=== PATIENT | female | born 1950 | race Caucasian/White ===

== ENCOUNTER 2017-04-14 13:14 | Emergency (ER) | payer OTHER ==
[2017-04-14 13:20] VITALS: BP 129/84
[2017-04-14 14:00] LABS: ABS Basophils 0.1 10^3/ul (0-0.2); ABS Eosinophils 0.1 10^3/ul (0-0.6); ABS Lymphocytes 1.6 10^3/ul (1.0-4.8); ABS Monocytes 0.3 10^3/ul (0-0.8); ABS Neutrophils 2.7 10^3/ul (1.5-7.7); ABS Nucleated RBC 0 10^3/ul; Eosinophil % 2.3 % (0-6); Hematocrit 42 % (35-47); Hemoglobin 14.2 g/dl (12.0-16.0); Lymphocyte % 33.9 % (25-47); Mean Corpuscular HGB Conc 34 g/dl (31-36); Mean Corpuscular Hemoglobin 31 pg (27-31); Mean Corpuscular Volume 91 fL (80-97); Mean Platelet Volume 8 um3 (7.4-10.4); Nucleated Red Blood Cells % 0; Platelet Count 234 10^3/ul (150-450); Red Blood Count 4.61 10^6/ul (4.0-5.4); Red Cell Distribution Width 14 % (10.5-15); White Blood Count 4.8 10^3/ul (3.5-10.8)
[2017-04-14 14:13] LABS: INR 0.92 (0.77-1.02)
[2017-04-14 14:14] LABS: EGFR Non-African American 69.3 (>60)
--- NOTE | 2017-04-14 14:20 | RAD ---
HISTORY: Chest pain COMPARISONS: November 06, 2013 VIEWS: 4: Frontal dual-energy and lateral views of the chest. FINDINGS: CARDIOMEDIASTINAL SILHOUETTE: The cardiomediastinal silhouette is normal. KOTA: The kota are normal. PLEURA: The costophrenic angles are sharp. No pleural abnormalities are noted. LUNG PARENCHYMA: The lungs are clear. ABDOMEN: The upper abdomen is clear. There is no subphrenic gas. BONES AND SOFT TISSUES: No bone or soft tissue abnormalities are noted. OTHER: None. IMPRESSION: NO ACTIVE CARDIOPULMONARY DISEASE.
== END 2017-04-14 15:41 | disposition left against medical advice (07) ==
LOC: ED 13:14
DX: R07.9 Chest pain, unspecified (principal); Z53.21 Procedure and treatment not carried out due to patient leaving prior to being seen by health care provider
CPT/HCPCS: 36415; 71046; 80053; 82550; 82553; 83605; 83735; 83880; 84443; 84484; 85025; 85610; 85730; 93005

== ENCOUNTER 2017-12-03 03:04 | Emergency (ER) | payer OTHER ==
[2017-12-03 04:37] LABS: Urine Appearance Clear; Urine Blood Negative (Negative); Urine Color Straw; Urine Ketones Negative (Negative); Urine Protein Negative (Negative); Urine Specific Gravity 1.003 (1.010-1.030); Urine Urobilinogen Negative (Negative)
[2017-12-03 04:38] LABS: Urine Red Blood Cell Absent (Absent); Urine White Blood Cell Trace(0-5/hpf) (Absent)
--- NOTE | 2017-12-03 04:59 | ED ---
GI/ HPI - HPI Summary HPI Summary: The pt is a 67 y.o female presenting to the [facility] with a chief complaint of frequent urination. The pt states she has had UTIs in the past but has not had any in recent memory. She denies fevers, hematuria and vomiting. The pt also reports of slight back pain. The onset of the symptoms was 1 week ago. The patient rates the pain 5/10 in severity. Symptoms aggravated by nothing. Symptoms alleviated by nothing. - History of Current Complaint Chief Complaint: EDUrogenitalProblems Time Seen by Provider: 12/03/17 04:12 Stated Complaint: FREQUENT URINATION/DISCOMFPRT Hx Obtained From: Patient Onset/Duration: Started Weeks Ago - 1 week ago Timing: Constant Severity: Moderate Pain Intensity: 5 Location of Pain: Other - slight back pain Associated Signs and Symptoms: Positive: Other: - Frequent urination. Negative hematuria. Negative: Vomiting, Fever Aggravating Factor(s): Nothing Alleviating Factor(s): Nothing - Allergy/Home Medications Allergies/Adverse Reactions: Allergies Allergy/AdvReac Type Severity Reaction Status Date / Time No Known Allergies Allergy Verified 12/03/17 03:11 PMH/Surg Hx/FS Hx/Imm Hx Endocrine/Hematology History: Denies: Hx Anticoagulant Therapy, Hx Diabetes, Hx Thyroid Disease, Hx Anemia Cardiovascular History: Reports: Hx Angina Denies: Hx Coronary Artery Disease, Hx Hypercholesterolemia, Hx Hypertension , Hx Myocardial Infarction, Hx Pacemaker/ICD, Hx Valvular Heart Disease Respiratory History: Denies: Hx Asthma, Hx Chronic Obstructive Pulmonary Disease (COPD) GI History: Denies: Hx Jaundice History: Reports: Hx Kidney Stones Denies: Hx Renal Disease Sensory History: Reports: Hx Contacts or Glasses Opthamlomology History: Reports: Hx Contacts or Glasses Neurological History: Denies: Hx Dementia, Hx Seizures Psychiatric History: Reports: Hx Anxiety Denies: Hx Substance Abuse - Cancer History Hx Chemotherapy: No Hx Radiation Therapy: No - Surgical History Surgery Procedure, Year, and Place: hysterectomy, year unk - Immunization History Date of Tetanus Vaccine: WITHIN 5 YEARS Date of Influenza Vaccine: 2012 Infectious Disease History: No Infectious Disease History: Denies: Hx Hepatitis, Hx Human Immunodeficiency Virus (HIV), Hx Shingles, Hx Tuberculosis, Traveled Outside the [place] in Last 30 Days - Family History Known Family History: Positive: None Family History: Reviewed and noncontributory - Social History Occupation: Retired Alcohol Use: Occasionally Substance Use Type: Reports: None Hx Tobacco Use: Yes Smoking Status (MU): Former Smoker Type: Cigarettes Amount Used/How Often: 1/2 PCK. Have You Smoked in the Last Year: No Review of Systems Negative: Fever Eyes: Negative ENT: Negative Cardiovascular: Negative Respiratory: Negative Negative: Vomiting Positive: frequency. Negative: hematuria Musculoskeletal: Other - slight back pain Skin: Negative Neurological: Negative Psychological: Normal All Other Systems Reviewed And Are Negative: Yes Physical Exam - Summary Physical Exam Summary: VITAL SIGNS: Reviewed. GENERAL: Patient is a well-developed and nourished (FEMALE) who is lying comfortable in the stretcher. Patient is not in any acute respiratory distress. HEAD AND FACE: No signs of trauma. No ecchymosis, hematomas or skull depressions. No sinus tenderness. EYES: PERRLA, EOMI x 2, No injected conjunctiva, no nystagmus. EARS: Hearing grossly intact. Ear canals and tympanic membranes are within normal limits. MOUTH: Oropharynx within normal limits. NECK: Supple, trachea is midline, no adenopathy, no JVD, no carotid bruit, no c- spine tenderness, neck with full ROM. CHEST: Symmetric, no tenderness at palpation LUNGS: Clear to auscultation bilaterally. No wheezing or crackles. CVS: Regular rate and rhythm, S1 and S2 present, no murmurs or gallops appreciated. ABDOMEN: Suprapubic tenderness EXTREMITIES: FROM in all major joints, no edema, no cyanosis or clubbing. NEURO: Alert and oriented x 3. No acute neurological deficits. Speech is normal and follows commands. SKIN: Dry and warm Triage Information Reviewed: Yes Vital Signs On Initial Exam: Initial Vitals Temp Pulse Resp BP Pulse Ox 97.6 F 96 16 157/97 98 12/03/17 03:08 12/03/17 03:08 12/03/17 03:08 12/03/17 03:08 12/03/17 03:08 Vital Signs Reviewed: Yes Diagnostics - Vital Signs Vital Signs Temp Pulse Resp BP Pulse Ox 12/03/17 03:08 97.6 F 96 16 157/97 98 - Laboratory Lab Results: Lab Results 12/03/17 Range/Units 04:27 Urine Color Straw Urine Appearance Clear Urine pH 6.0 (5-9) Ur Specific Protivin 1.003 L (1.010-1.030) Urine Protein Negative (Negative) Urine Ketones Negative (Negative) Urine Blood Negative (Negative) Urine Nitrate Negative (Negative) Urine Bilirubin Negative (Negative) Urine Urobilinogen Negative (Negative) Ur Leukocyte Esterase 1+ A (Negative) Urine WBC (Auto) Trace(0-5/hpf) (Absent) Urine RBC (Auto) Absent (Absent) Urine Bacteria Absent (Absent) Urine Glucose Negative (Negative) Urine Ascorbic Acid * A (Negative) Lab Statement: Any lab studies that have been ordered have been reviewed, and results considered in the medical decision making process. GIGU Course/Dx - Course Course Of Treatment: The pt is a 67 y/o female with a chief complaint of frequent urination. pt also reports of a slight back pain. since 1 week ago. The pt upon review of lab results and urinalysis will be dx with UTI. The pt is recommended to follow up with Private MD within 1 to 2 days. She will be discharged home. - Diagnoses Provider Diagnoses: UTI (urinary tract infection) Discharge - Sign-Out/Discharge Documenting (check all that apply): Patient Departure - Discharge home, Post- Discharge Follow Up - Follow up with private MD within 1 to 2 days - Discharge Plan Condition: Stable Disposition: HOME Prescriptions: Levofloxacin TAB* [Levaquin TAB*] 500 mg PO DAILY #3 tab Phenazopyridine TAB* [Pyridium 100 mg TAB*] 100 mg PO TID PRN #7 tab PRN Reason: Pain Patient Education Materials: Urinary Tract Infection in Women (ED) Referrals: Olvin Stoll MD [Primary Care Provider] - Additional Instructions: RETURN TO THE EMERGENCY DEPARTMENT FOR CHANGING OR WORSENING SYMPTOMS. FOLLOW UP WITH PCP IN 1-2 DAYS. - Attestation Statements Document Initiated by Scribe: Yes Documenting Scribe: Freddie Couch Provider For Whom Scribe is Documenting (Include Credential): Dr. Guevara Adan Scribe Attestation: Freddie Wilkes scribed for Dr. Guevara Adan on 12/03/17 at 0523.
[2017-12-03] MEDS ORDERED: Phenazopyridine TAB* 100 MG PO ONE (05:14)
[2017-12-03] MEDS ORDERED: Levofloxacin TAB* 500 MG PO ONE (05:14)
[2017-12-03 05:37] VITALS: BP 132/92
== END 2017-12-03 05:37 | disposition home or self-care (01) ==
LOC: ED 03:04
DX: N39.0 Urinary tract infection, site not specified (principal); Z87.440 Personal history of urinary (tract) infections
CPT/HCPCS: 81003; 81015; 87086; 99282; A9270-GY

== ENCOUNTER → 2018-08-31 16:03 | Emergency (ER) | payer OTHER ==
--- NOTE | 2018-08-31 16:34 | ED ---
HPI Chest Pain - HPI Summary HPI Summary: This pt is a 67 y/o female presenting to [facility] c/o intermittent chest pain since last week. Pt describes chest pain as intermittent pressure that is located under her left breast. She notes that it sometimes radiates to her left side. Pt states she has associated nausea. Denies vomiting, SOB, numbness, tingling. She reports 2 days ago she had a bit of chest pain but resolved on its own. Yesterday she states also having chest pain but it resolved "immediately" after taking Zantac. Pt exercised yesterday and reports she had no chest pain after. Today she also notes she had some chest pain. - History of Current Complaint Chief Complaint: EDChestPainROMI Time Seen by Provider: 08/31/18 16:18 Hx Obtained From: Patient Onset/Duration: Started Weeks Ago - 1, Still Present Timing: Intermittent, Lasting Weeks - 1 Initial Severity: Mild Current Severity: None Pain Intensity: 0 Pain Scale Used: 0-10 Numeric Chest Pain Location: Left Anterior Chest Pain Radiates: No Character: Pressure/Squeezing - Pressure Aggravating Factor(s): Nothing Alleviating Factor(s): Nothing Associated Signs and Symptoms: Positive: Chest Pain, Nausea. Negative: Numbness , Tingling, Shortness of Breath, Fever, Chills, Vomiting - Allergy/Home Medications Allergies/Adverse Reactions: Allergies Allergy/AdvReac Type Severity Reaction Status Date / Time No Known Allergies Allergy Verified 12/03/17 03:11 Home Medications: Home Medications Estradiol VAG CM (NF) [Estrace VAG CM (NF)] 1 applic VAGINAL .TWICE A WEEK 08/31 [History Confirmed 08/31/18] Ranitidine TAB (NF) [Zantac TAB (NF)] 300 mg PO DAILY 08/31/18 [History Confirmed 08/31/18] PMH/Surg Hx/FS Hx/Imm Hx Endocrine/Hematology History: Denies: Hx Anticoagulant Therapy, Hx Diabetes, Hx Thyroid Disease, Hx Anemia Cardiovascular History: Reports: Hx Angina Denies: Hx Coronary Artery Disease, Hx Hypercholesterolemia, Hx Hypertension , Hx Myocardial Infarction, Hx Pacemaker/ICD, Hx Valvular Heart Disease Respiratory History: Denies: Hx Asthma, Hx Chronic Obstructive Pulmonary Disease (COPD) GI History: Denies: Hx Jaundice History: Reports: Hx Kidney Stones Denies: Hx Renal Disease Sensory History: Reports: Hx Contacts or Glasses Opthamlomology History: Reports: Hx Contacts or Glasses Neurological History: Denies: Hx Dementia, Hx Seizures Psychiatric History: Reports: Hx Anxiety Denies: Hx Substance Abuse - Cancer History Hx Chemotherapy: No Hx Radiation Therapy: No - Surgical History Surgery Procedure, Year, and Place: hysterectomy, year unk - Immunization History Date of Tetanus Vaccine: WITHIN 5 YEARS Date of Influenza Vaccine: 2012 Infectious Disease History: No Infectious Disease History: Denies: Hx Hepatitis, Hx Human Immunodeficiency Virus (HIV), Hx Shingles, Hx Tuberculosis, Traveled Outside the [place] in Last 30 Days - Family History Known Family History: Positive: Unknown - pt is adopted - Social History Alcohol Use: Occasionally Substance Use Type: Reports: None Hx Tobacco Use: Yes Smoking Status (MU): Former Smoker Type: Cigarettes Amount Used/How Often: 1/2 PCK. Have You Smoked in the Last Year: No Review of Systems Negative: Fever, Chills Positive: Chest Pain Negative: Shortness Of Breath Positive: Nausea. Negative: Vomiting Negative: Paresthesia, Numbness All Other Systems Reviewed And Are Negative: Yes Physical Exam - Summary Physical Exam Summary: VITAL SIGNS: Reviewed. GENERAL: Patient is a well-developed and nourished female who is lying comfortable in the stretcher. Patient is not in any acute respiratory distress. HEAD AND FACE: No signs of trauma. No ecchymosis, hematomas or skull depressions. No sinus tenderness. EYES: PERRLA, EOMI x 2, No injected conjunctiva, no nystagmus. EARS: Hearing grossly intact. Ear canals and tympanic membranes are within normal limits. MOUTH: Oropharynx within normal limits. NECK: Supple, trachea is midline, no adenopathy, no JVD, no carotid bruit, no c- spine tenderness, neck with full ROM. CHEST: Symmetric, no tenderness at palpation LUNGS: Clear to auscultation bilaterally. No wheezing or crackles. CVS: Regular rate and rhythm, S1 and S2 present, no murmurs or gallops appreciated. ABDOMEN: Soft, non-tender. No signs of distention. No rebound, no guarding, and no masses palpated. Bowel sounds are normal. EXTREMITIES: FROM in all major joints, no edema, no cyanosis or clubbing. NEURO: Alert and oriented x 3. No acute neurological deficits. Speech is normal and follows commands. SKIN: Dry and warm Triage Information Reviewed: Yes Vital Signs On Initial Exam: Initial Vitals Temp Pulse Resp BP Pulse Ox 99.3 F 95 20 138/86 96 08/31/18 16:10 08/31/18 16:10 08/31/18 16:10 08/31/18 16:10 08/31/18 16:10 Vital Signs Reviewed: Yes Diagnostics - Vital Signs Vital Signs Temp Pulse Resp BP Pulse Ox 08/31/18 16:10 99.3 F 95 20 138/86 96 - Laboratory Result Diagrams: 08/31/18 16:36 08/31/18 16:36 Lab Statement: Any lab studies that have been ordered have been reviewed, and results considered in the medical decision making process. - Radiology Chest XR Radiology Interpretation Completed By: Radiologist Summary of Radiographic Findings: IMPRESSION: No active cardiopulmonary disease. Dr. Ruiz has reviewed this report. - EKG 16:09 Cardiac Rate: NL - at 91 bpm EKG Rhythm: Sinus Rhythm Summary of EKG Findings: No ST elevations. Re-Evaluation - Re-Evaluation First Eval Re-Evaluation Time: 20:03 Comment: Reviewed lab, CXR results with pt. She will be discharged home with follow up from her PCP. Chest Pain Course/Dx - Course Assessment/Plan: This pt is a 67 y/o female [facility]o [facility] chest pain since last week. Pt describes chest pain as intermittent pressure that is located under her left breast. She notes that it sometimes radiates to her left side. Pt states she has associated nausea. Denies vomiting, SOB, numbness, tingling. She reports 2 days ago she had a bit of chest pain but resolved on its own. Yesterday she states also having chest pain but it resolved "immediately" after taking Zantac. Pt exercised yesterday and reports she had no chest pain after. Today she also notes she had some chest pain. No past medical histor. She denies any hypertension or diabetes. Test results without any significant abnormality except for glucose of 120, troponin is 0.00. Chest x-ray impression: No acute cardiopulmonary disease. Second troponin 4 hours apart is also 0.00. Patient continues to be asymptomatic therefore she will be discharged home with follow-up from her PCP. The heart to score is equal to 1 therefore I believe that the patient doesnt have an acute coronary syndrome. The patient is not hypoxic and/or tachycardic and therefore she will be discharged home with follow up from her PCP. . I discussed all the findings and test results with the patient. Patient was instructed to return to the emergency room immediately if any of the symptoms return worsens. Plan of care was discussed with the patient and understands and agrees. All questions were answered at patient satisfaction. There were no further complaints or concerns. Lung exam before discharge: CTA B/L. Good air exchange. No wheezing or crackles heard. CVS: S1 and S2 present. No murmurs appreciated. Patient is alert and oriented x 3. Patient is hemodynamically stable. Patient will be discharged home with follow up from her PCP in the next 2-3 days. - Diagnoses Provider Diagnoses: Atypical chest pain Discharge - Sign-Out/Discharge Documenting (check all that apply): Patient Departure - Discharge home Patient Received Moderate/Deep Sedation with Procedure: No - Discharge Plan Condition: Stable Disposition: HOME Patient Education Materials: Chest Pain (ED) Referrals: Olvin Stoll MD [Primary Care Provider] - Additional Instructions: FOLLOW UP WITH YOUR PRIMARY CARE PROVIDER IN 2-3 DAYS. RETURN TO THE ED FOR ANY NEW OR WORSENING SYMPTOMS. - Billing Disposition and Condition Condition: STABLE Disposition: Home - Attestation Statements Document Initiated by Camelia: Yes Documenting Fishibe: Kamilla Tristan Provider For Whom Camelia is Documenting (Include Credential): Vicente Ruiz MD Scribe Attestation: Kamilla Wilkes, scribed for Vicente Ruiz MD on 08/31/18 at 2130. Scribe Documentation Reviewed: Yes Provider Attestation: The documentation as recorded by the Kamilla singleton accurately reflects the service I personally performed and the decisions made by me, Vicente Ruiz MD Status of Scribe Document: Viewed
[2018-08-31 16:46] LABS: ABS Eosinophils 0.1 10^3/ul (0-0.6); ABS Lymphocytes 2.1 10^3/ul (1.0-4.8); ABS Monocytes 0.4 10^3/ul (0-0.8); ABS Neutrophils 2.9 10^3/ul (1.5-7.7); Eosinophil % 1.5 %; Hematocrit 42 % (35-47); Hemoglobin 14.4 g/dL (12.0-16.0); Lymphocyte % 37.7 %; Mean Corpuscular HGB Conc 34 g/dL (31-36); Mean Corpuscular Hemoglobin 31 pg (27-31); Mean Corpuscular Volume 91 fL (80-97); Mean Platelet Volume 7.6 fL (7.4-10.4); Platelet Count 233 10^3/uL (150-450); Red Blood Count 4.63 10^6 /uL (3.70-4.87); Red Cell Distribution Width 14 % (10-15); White Blood Count 5.5 10^3/uL (3.5-10.8)
[2018-08-31 16:57] LABS: Activated Partial Thrombo Time 37.4 seconds (26.0-38.0); INR 0.97 (0.82-1.09)
[2018-08-31 17:05] LABS: Albumin 4.3 g/dL (3.2-5.2); Albumin/Globulin Ratio 1.6 (1-3); Calcium 9.8 mg/dL (8.6-10.3); EGFR African American 70.6 (>60); EGFR Non-African American 58.3 (>60); Globulin 2.7 g/dL (2-4); Potassium 3.8 mmol/L (3.5-5.0); Total Bilirubin 0.6 mg/dL (0.2-1.0)
[2018-08-31 17:09] LABS: CKMB ng/mL 5.6 ng/mL (0.6-6.3)
[2018-08-31 17:52] LABS: TSH (Thyroid Stimulating Horm) 3.36 mcIU/mL (0.34-5.60)
[2018-08-31 20:17] VITALS: BP 124/81
== END | disposition home or self-care (01) ==
LOC: ED 16:03
DX: R07.89 Other chest pain (principal); Z87.891 Personal history of nicotine dependence; Z79.899 Other long term (current) drug therapy
CPT/HCPCS: 36415; 71045; 80053; 82550; 82553; 83880; 84443; 84484; 85025; 85610; 85730; 93005; 99283